=== PATIENT | female | born 1950 | race Caucasian/White ===

== ENCOUNTER 2018-01-23 07:37 | Emergency (ER) | payer BC, MEDICARE ==
[~2018-01-23 07:37] MED LIST: LIDOCAINE 100 MG SYRINGE; PROPOFOL 200 MG INJ; ROCURONIUM 50 MG INJ
[2018-01-23] MEDS ORDERED: HEPARIN 1000 UNITS/NS (A-LINE) 0 ML (07:54)
[2018-01-23] MEDS ORDERED: LIDOCAINE 1% (MDV) 20 ML INJ (07:54)
[2018-01-23] MEDS ORDERED: NITROGLYCERIN (IC) 100 MCG/ML INJ (07:54)
[2018-01-23] MEDS ORDERED: IODIXANOL LOCM 100 ML BTL (07:54)
[2018-01-23] MEDS ORDERED: FENTAnyl 50 MCG/ML VIAL (07:54)
[2018-01-23] MEDS ORDERED: HEPARIN 1000 UNITS/ML 10 ML INJ (07:54)
[2018-01-23] MEDS ORDERED: MIDAZOLAM 1 MG/ML 2 ML INJ (07:54)
[2018-01-23] MEDS ORDERED: VERAPAMIL 5 MG INJ (07:55)
[2018-01-23 08:02] LABS: ADD MAN DIFF? NO
[2018-01-23] MEDS ORDERED: PROPOFOL 100 ML (08:02)
[2018-01-23 08:04] LABS: WHITE BLOOD COUNT 8.2 10^3/ul (4.8-10.8)
[2018-01-23 08:04] LABS: BASOPHIL # 0.1 10^3/ul (0.0-0.1); BASOPHILS % 0.7 % (0.0-2.0); EOSINOPHILS # 0.1 10^3/ul (0.0-0.5); EOSINOPHILS % 1.6 % (0.0-7.0); HEMATOCRIT 43.2 % (37.0-47.0); HEMOGLOBIN 14.5 g/dl (12.0-16.0); LYMPHOCYTES # 3.8 10^3/ul (0.8-2.9); LYMPHOCYTES % 46.3 % (15.0-51.0); MEAN CORPUSCULAR HEMOGLOBIN 30.7 pg (29.0-33.0); MEAN CORPUSCULAR HGB CONC 33.6 g/dl (32.0-37.0); MEAN CORPUSCULAR VOLUME 91.5 fl (82.0-101.0); MEAN PLATELET VOLUME 11.2 fl (7.4-10.4); MONOCYTE # 0.3 10^3/ul (0.3-0.9); MONOCYTES % 3.4 % (0.0-11.0); NEUTROPHIL # 3.9 10^3/ul (1.6-7.5); NUCLEATED RED BLOOD CELLS% 0.2 /100WBC (0.0-0.0); PLATELET COUNT 214 10^3/UL (140-415); RED BLOOD COUNT 4.72 10^6/ul (4.20-5.40); RED CELL DISTRIBUTION WIDTH 12.8 % (11.5-14.5)
[2018-01-23 08:18] LABS: ANION GAP 22 (8-16); BLOOD UREA NITROGEN 17 mg/dl (7-20); CALCIUM 8.7 mg/dl (8.4-10.2); CARBON DIOXIDE 23 mmol/L (21-31); CHLORIDE 106 mmol/L (97-110); CHOL/HDL RATIO 2.9 RATIO; CHOLESTEROL 188 mg/dl (100-200); GLUCOSE 201 mg/dl (70-220); HDL CHOLESTEROL 63 mg/dl (35-98); INR 1.09; LDL CHOLESTEROL,CALCULATED 102 mg/dl; POTASSIUM 3.2 mmol/L (3.5-5.1); PROTIME 14.2 Sec (11.9-14.9); PT RATIO 1.1; SODIUM 148 mmol/L (135-144); TRIGLYCERIDES 115 mg/dl (0-149)
[2018-01-23 08:19] LABS: PARTIAL THROMBOPLASTIN TIME 30.1 Sec (25.0-35.0)
[2018-01-23 08:21] LABS: HEMOGLOBIN A1C 5.4 % (0-5.9)
[2018-01-23 08:30] LABS: TROPONIN-I < 0.012 ng/ml (0.00-0.12)
[2018-01-23] MEDS: PROPOFOL 100 ML IV (08:38)
[2018-01-23 08:43] LABS: AADO2 Arterial 155.8 mmHg (7.0-24.0); Allen Test ACCEPTAB; Arterial Base Excess -4.2 mmol/L (-3.0-3); Arterial Blood Gas Oxygen Sat 99.6 mmHG (95.0-98.0); Arterial COHb 0.3 % (0.0-3.0); Arterial Fraction of Oxyhgb 98.9 % (93.0-99.0); Arterial HCO3 19.7 mmol/L (22.0-26.0); Arterial MetHb 0.4 % (0.0-1.5); Arterial Total Hemglobin 14.5 g/dl (12.0-18.0); Arterial pCO2 32.9 mmhg (35-45); MODE VENT - AC; Site Left Radial
[2018-01-23] MEDS ORDERED: niCARdipine-NS 0.1MG/ML DRIP 200 ML IV (09:00)
[2018-01-23] MEDS ORDERED: MANNITOL 25% 50 ML INJ IV* (09:00)
[2018-01-23] MEDS ORDERED: MANNITOL 20% 250 ML IV (09:30)
== END 2018-01-23 10:00 | disposition short-term general hospital (02) ==
LOC: E/R 07:37
DX: I60.9 Nontraumatic subarachnoid hemorrhage, unspecified (principal); I46.9 Cardiac arrest, cause unspecified
CPT/HCPCS: 31500; 36415; 36600; 70450; 71045; 80048; 80061; 82803; 82962; 83036; 84484; 85025; 85610; 85730; 86850; 86900; 86901; 93005; 94002; 96374; 99291-25